=== PATIENT | male | born 1970 | race Hispanic/Latino ===

== ENCOUNTER 2017-02-13 22:56 | Inpatient (IN) | payer OTHER, SELFPAY ==
--- NOTE | 2017-02-13 23:55 | Cat Scan Report ---
FINAL REPORT EXAM: CT HEAD/BRAIN WO CON HISTORY: seizures TECHNIQUE: CT head without contrast PRIORS: None. FINDINGS: No acute intra-axial or extra-axial hemorrhage is identified. There is no evidence of midline shift or mass effect. The ventricles and sulci are within normal limits. Valverde-white matter differentiation is intact. No acute parenchymal abnormalities seen. Bony calvarium is grossly intact. There is complete opacification of the frontal sinus. Mucosal thickening is noted in the visualized portion of the left maxillary sinus. This opacification within left ethmoid air cells. IMPRESSION: Evidence for chronic sinusitis No acute intracranial findings
[2017-02-14 00:03] LABS: Basophils % (Auto) 1.1 % (0.0-1.8); Eosinophils % (Auto) 5.1 % (0.0-4.3); Hematocrit 50.7 % (35.5-45.6); Hemoglobin 16.9 gm/dl (11.8-15.2); Mean Corpuscular HGB Conc 33 % (32-34); Mean Corpuscular Hemoglobin 30 pg (28-32); Mean Corpuscular Volume 90 fl (84-94); Platelet Count 299 K/mm3 (140-440); Red Blood Count 5.64 M/mm3 (3.65-5.03); Red Cell Distribution Width 14.7 % (13.2-15.2); White Blood Count 10.4 K/mm3 (4.5-11.0)
[2017-02-14 00:17] LABS: BUN/Creatinine Ratio 17.77; Blood Urea Nitrogen 16 mg/dL (9-20); Carbon Dioxide 23 mmol/L (22-30); Chloride 101.8 mmol/L (98-107); Glucose 104 mg/dL (75-100); Potassium 4.3 mmol/L (3.6-5.0); Sodium 140 mmol/L (137-145)
[2017-02-14 00:22] LABS: Anion Gap 20 mmol/L
[2017-02-14] MEDS ORDERED: TYLENOL PO ONE (02:20)
[2017-02-14 02:40] LABS: Urine Drugs of Abuse Note Disclamer
[2017-02-14 02:48] LABS: Bilirubin,Urine NEG (Negative); Blood,Urine NEG (Negative); Ketones,Urine NEG (Negative); Leukocyte Esterase,Urine NEG (Negative); Nitrite,Urine NEG (Negative); Protein,Urine <15 mg/dL mg/dL (Negative); Urobilinogen,Urine < 2.0 mg/dL (<2.0)
[2017-02-14] MEDS ORDERED: REGLAN IV ONE (03:02)
[2017-02-14] MEDS ORDERED: TORADOL IV ONE (03:02)
[2017-02-14] MEDS ORDERED: BABY ASPIRIN PO ONE (03:03)
--- NOTE | 2017-02-14 03:03 | Emergency Department Report ---
ED General Adult HPI - General Chief complaint: Seizure Stated complaint: SEIZURE Time Seen by Provider: 02/14/17 02:48 Source: patient, family, EMS, RN notes reviewed Mode of arrival: Ambulatory Limitations: No Limitations - History of Present Illness Initial comments: This is a 46-year-old male. He is previously unknown to me. The patient does not have a primary care doctor. He is a chronic tobacco user. He is accompanied by his fiance. As per the patient's fiance, the patient got out of the shower yesterday evening, sat on the couch, and had an episode of unresponsiveness. She reports that the patient had general convulsive activity , and his eyes rolled into the back of his head. She further reports that the patient appeared to have some word finding difficulty which has since resolved. She reports that the patient's frequently stops breathing while asleep at night. The patient works in [employer]. He complains of mild frontal sinus headache. There is no chest pain. There is chronic shortness of breath. There is no leg pain. There is no leg swelling. No recent trips greater than 4 hours. No recent hospital admissions. No history of convulsive episodes in the past. No recent stress test. No history of sleep study. No recent echocardiogram. -: Gradual Location: head Severity scale (0 -10): 5 Consistency: now resolved Improves with: none Worsens with: none Associated Symptoms: confusion, diaphoresis, headaches, loss of appetite, malaise, shortness of breath, syncope (near syncope), weakness. denies: chest pain, cough - Related Data Home Medications Medication Instructions Recorded Confirmed Last Taken No Known Home Medications [No 02/13/17 02/13/17 Unknown Reported Home Medications] Allergies Allergy/AdvReac Type Severity Reaction Status Date / Time No Known Allergies Allergy Verified 02/13/17 23:21 ED Review of Systems ROS: Stated complaint: SEIZURE Other details as noted in HPI Constitutional: diaphoresis, malaise Eyes: vision change ENT: denies: epistaxis Respiratory: shortness of breath Cardiovascular: syncope. denies: chest pain Gastrointestinal: denies: abdominal pain Genitourinary: denies: dysuria Musculoskeletal: denies: back pain Skin: denies: lesions Neurological: headache, weakness, confusion ED Past Medical Hx - Past Medical History Hx Hypertension: No Hx Congestive Heart Failure: No Hx Diabetes: No Hx Asthma: No Hx COPD: No - Surgical History Past Surgical History?: No - Social History Smoking Status: Current Every Day Smoker Substance Use Type: None - Medications Home Medications: Home Medications Medication Instructions Recorded Confirmed Last Taken Type No Known Home Medications [No 02/13/17 02/13/17 Unknown History Reported Home Medications] ED Physical Exam - General Limitations: No Limitations General appearance: alert, in no apparent distress, obese - Head Head exam: Present: atraumatic, normocephalic - Eye Eye exam: Present: normal appearance, PERRL, EOMI. Absent: nystagmus - ENT ENT exam: Present: normal exam, normal orophraynx, mucous membranes moist, normal external ear exam - Neck Neck exam: Present: normal inspection, full ROM. Absent: tenderness, meningismus - Respiratory Respiratory exam: Present: normal lung sounds bilaterally. Absent: respiratory distress, wheezes, rales, rhonchi, stridor, chest wall tenderness, accessory muscle use, decreased breath sounds, prolonged expiratory - Cardiovascular Cardiovascular Exam: Present: regular rate, normal rhythm, normal heart sounds. Absent: systolic murmur, diastolic murmur, rubs, gallop - GI/Abdominal GI/Abdominal exam: Present: soft, normal bowel sounds. Absent: distended, tenderness, guarding, rebound, rigid, pulsatile mass - Rectal Rectal exam: Present: deferred - Extremities Exam Extremities exam: Present: normal inspection, full ROM, normal capillary refill. Absent: tenderness, pedal edema, joint swelling, calf tenderness - Back Exam Back exam: Present: normal inspection, full ROM. Absent: tenderness, CVA tenderness (R), CVA tenderness (L), muscle spasm, paraspinal tenderness, vertebral tenderness - Neurological Exam Neurological exam: Present: alert, oriented X3, normal gait, other (Extraocular movements intact. Tongue midline. No facial droop. Facial sensation intact to light touch in the V1, V2, V3 distribution bilaterally. 5 and 5 strength in 4 extremities.. Sensation is intact to light touch in 4 extremities.). Absent : motor sensory deficit - Psychiatric Psychiatric exam: Present: anxious - Skin Skin exam: Present: warm, dry, intact, normal color. Absent: rash ED Course Vital Signs 02/13/17 02/14/17 02/14/17 23:26 02:11 03:31 Temperature 98 F Pulse Rate 74 60 Respiratory 16 16 18 Rate Blood Pressure 125/76 Blood Pressure 125/79 [Left] O2 Sat by Pulse 95 95 Oximetry 02/14/17 02/14/17 03:36 04:34 Temperature 98.8 F Pulse Rate 66 Respiratory 18 16 Rate Blood Pressure Blood Pressure 122/74 [Left] O2 Sat by Pulse 97 Oximetry ED Medical Decision Making - Lab Data Result diagrams: 02/13/17 23:48 02/14/17 00:05 Vital Signs 02/13/17 02/14/17 02/14/17 23:26 02:11 03:31 Temperature 98 F Pulse Rate 74 60 Respiratory 16 16 18 Rate Blood Pressure 125/76 Blood Pressure 125/79 [Left] O2 Sat by Pulse 95 95 Oximetry 02/14/17 02/14/17 03:36 04:34 Temperature 98.8 F Pulse Rate 66 Respiratory 18 16 Rate Blood Pressure Blood Pressure 122/74 [Left] O2 Sat by Pulse 97 Oximetry Lab Results 02/13/17 02/13/17 02/14/17 Range/Units 23:48 23:51 00:05 WBC 10.4 (4.5-11.0) K/mm3 RBC 5.64 H (3.65-5.03) M/mm3 Hgb 16.9 H (11.8-15.2) gm/dl Hct 50.7 H (35.5-45.6) % MCV 90 (84-94) fl MCH 30 (28-32) pg MCHC 33 (32-34) % RDW 14.7 (13.2-15.2) % Plt Count 299 (140-440) K/mm3 Lymph % (Auto) 23.8 (13.4-35.0) % [place] % (Auto) 7.9 H (0.0-7.3) % Eos % (Auto) 5.1 H (0.0-4.3) % Baso % (Auto) 1.1 (0.0-1.8) % Lymph # 2.5 (1.2-5.4) K/mm3 [place] # 0.8 (0.0-0.8) K/mm3 Eos # 0.5 H (0.0-0.4) K/mm3 Baso # 0.1 (0.0-0.1) K/mm3 Seg Neutrophils % 62.1 (40.0-70.0) % Seg Neutrophils # 6.4 (1.8-7.7) K/mm3 Sodium 140 (137-145) mmol/L Potassium 4.3 (3.6-5.0) mmol/L Chloride 101.8 (98-107) mmol/L Carbon Dioxide 23 (22-30) mmol/L Anion Gap 20 mmol/L BUN 16 (9-20) mg/dL Creatinine 0.9 (0.8-1.5) mg/dL Estimated GFR > 60 ml/min BUN/Creatinine Ratio 17.77 % Glucose 104 H (75-100) mg/dL POC Glucose 101 (70-105) Calcium 9.0 (8.4-10.2) mg/dL Total Creatine Kinase (55-170) units/L Troponin T (0.00-0.029) ng/mL Urine Color (Yellow) Urine Turbidity (Clear) Urine pH (5.0-7.0) Ur Specific [place] (1.003-1.030) Urine Protein (Negative) mg/dL Urine Glucose (UA) (Negative) mg/dL Urine Ketones (Negative) mg/dL Urine Blood (Negative) Urine Nitrite (Negative) Urine Bilirubin (Negative) Urine Urobilinogen (<2.0) mg/dL Ur Leukocyte Esterase (Negative) Urine WBC (Auto) (0.0-6.0) /HPF Urine RBC (Auto) (0.0-6.0) /HPF U Epithel Cells (Auto) (0-13.0) /HPF Salicylates (2.8-20.0) mg/dL Urine Opiates Screen Urine Methadone Screen Acetaminophen (10.0-30.0) ug/mL Ur Barbiturates Screen Ur Phencyclidine Scrn Ur Amphetamines Screen U Benzodiazepines Scrn Urine Cocaine Screen U Marijuana (THC) Screen Drugs of Abuse Note Plasma/Serum Alcohol (0-0.07) gm% 02/14/17 02/14/17 02/14/17 Range/Units 00:10 00:10 00:10 WBC (4.5-11.0) K/mm3 RBC (3.65-5.03) M/mm3 Hgb (11.8-15.2) gm/dl Hct (35.5-45.6) % MCV (84-94) fl MCH (28-32) pg MCHC (32-34) % RDW (13.2-15.2) % Plt Count (140-440) K/mm3 Lymph % (Auto) (13.4-35.0) % [place] % (Auto) (0.0-7.3) % Eos % (Auto) (0.0-4.3) % Baso % (Auto) (0.0-1.8) % Lymph # (1.2-5.4) K/mm3 [place] # (0.0-0.8) K/mm3 Eos # (0.0-0.4) K/mm3 Baso # (0.0-0.1) K/mm3 Seg Neutrophils % (40.0-70.0) % Seg Neutrophils # (1.8-7.7) K/mm3 Sodium (137-145) mmol/L Potassium (3.6-5.0) mmol/L Chloride (98-107) mmol/L Carbon Dioxide (22-30) mmol/L Anion Gap mmol/L BUN (9-20) mg/dL Creatinine (0.8-1.5) mg/dL Estimated GFR ml/min BUN/Creatinine Ratio % Glucose (75-100) mg/dL POC Glucose (70-105) Calcium (8.4-10.2) mg/dL Total Creatine Kinase 62 (55-170) units/L Troponin T (0.00-0.029) ng/mL Urine Color (Yellow) Urine Turbidity (Clear) Urine pH (5.0-7.0) Ur Specific [place] (1.003-1.030) Urine Protein (Negative) mg/dL Urine Glucose (UA) (Negative) mg/dL Urine Ketones (Negative) mg/dL Urine Blood (Negative) Urine Nitrite (Negative) Urine Bilirubin (Negative) Urine Urobilinogen (<2.0) mg/dL Ur Leukocyte Esterase (Negative) Urine WBC (Auto) (0.0-6.0) /HPF Urine RBC (Auto) (0.0-6.0) /HPF U Epithel Cells (Auto) (0-13.0) /HPF Salicylates < 0.3 L (2.8-20.0) mg/dL Urine Opiates Screen Urine Methadone Screen Acetaminophen (10.0-30.0) ug/mL Ur Barbiturates Screen Ur Phencyclidine Scrn Ur Amphetamines Screen U Benzodiazepines Scrn Urine Cocaine Screen U Marijuana (THC) Screen Drugs of Abuse Note Plasma/Serum Alcohol < 0.01 (0-0.07) gm% 02/14/17 02/14/17 02/14/17 Range/Units 00:10 02:36 02:36 WBC (4.5-11.0) K/mm3 RBC (3.65-5.03) M/mm3 Hgb (11.8-15.2) gm/dl Hct (35.5-45.6) % MCV (84-94) fl MCH (28-32) pg MCHC (32-34) % RDW (13.2-15.2) % Plt Count (140-440) K/mm3 Lymph % (Auto) (13.4-35.0) % [place] % (Auto) (0.0-7.3) % Eos % (Auto) (0.0-4.3) % Baso % (Auto) (0.0-1.8) % Lymph # (1.2-5.4) K/mm3 [place] # (0.0-0.8) K/mm3 Eos # (0.0-0.4) K/mm3 Baso # (0.0-0.1) K/mm3 Seg Neutrophils % (40.0-70.0) % Seg Neutrophils # (1.8-7.7) K/mm3 Sodium (137-145) mmol/L Potassium (3.6-5.0) mmol/L Chloride (98-107) mmol/L Carbon Dioxide (22-30) mmol/L Anion Gap mmol/L BUN (9-20) mg/dL Creatinine (0.8-1.5) mg/dL Estimated GFR ml/min BUN/Creatinine Ratio % Glucose (75-100) mg/dL POC Glucose (70-105) Calcium (8.4-10.2) mg/dL Total Creatine Kinase (55-170) units/L Troponin T (0.00-0.029) ng/mL Urine Color Yellow (Yellow) Urine Turbidity Clear (Clear) Urine pH 7.0 (5.0-7.0) Ur Specific [place] 1.017 (1.003-1.030) Urine Protein <15 mg/dl (Negative) mg/dL Urine Glucose (UA) Neg (Negative) mg/dL Urine Ketones Neg (Negative) mg/dL Urine Blood Neg (Negative) Urine Nitrite Neg (Negative) Urine Bilirubin Neg (Negative) Urine Urobilinogen < 2.0 (<2.0) mg/dL Ur Leukocyte Esterase Neg (Negative) Urine WBC (Auto) 2.0 (0.0-6.0) /HPF Urine RBC (Auto) 3.0 (0.0-6.0) /HPF U Epithel Cells (Auto) < 1.0 (0-13.0) /HPF Salicylates (2.8-20.0) mg/dL Urine Opiates Screen Presumptive negative Urine Methadone Screen Presumptive negative Acetaminophen < 15.0 (10.0-30.0) ug/mL Ur Barbiturates Screen Presumptive negative Ur Phencyclidine Scrn Presumptive negative Ur Amphetamines Screen Presumptive negative U Benzodiazepines Scrn Presumptive negative Urine Cocaine Screen Presumptive negative U Marijuana (THC) Screen Presumptive negative Drugs of Abuse Note Disclamer Plasma/Serum Alcohol (0-0.07) gm% 02/14/17 Range/Units 03:53 WBC (4.5-11.0) K/mm3 RBC (3.65-5.03) M/mm3 Hgb (11.8-15.2) gm/dl Hct (35.5-45.6) % MCV (84-94) fl MCH (28-32) pg MCHC (32-34) % RDW (13.2-15.2) % Plt Count (140-440) K/mm3 Lymph % (Auto) (13.4-35.0) % [place] % (Auto) (0.0-7.3) % Eos % (Auto) (0.0-4.3) % Baso % (Auto) (0.0-1.8) % Lymph # (1.2-5.4) K/mm3 [place] # (0.0-0.8) K/mm3 Eos # (0.0-0.4) K/mm3 Baso # (0.0-0.1) K/mm3 Seg Neutrophils % (40.0-70.0) % Seg Neutrophils # (1.8-7.7) K/mm3 Sodium (137-145) mmol/L Potassium (3.6-5.0) mmol/L Chloride (98-107) mmol/L Carbon Dioxide (22-30) mmol/L Anion Gap mmol/L BUN (9-20) mg/dL Creatinine (0.8-1.5) mg/dL Estimated GFR ml/min BUN/Creatinine Ratio % Glucose (75-100) mg/dL POC Glucose (70-105) Calcium (8.4-10.2) mg/dL Total Creatine Kinase (55-170) units/L Troponin T < 0.010 (0.00-0.029) ng/mL Urine Color (Yellow) Urine Turbidity (Clear) Urine pH (5.0-7.0) Ur Specific [place] (1.003-1.030) Urine Protein (Negative) mg/dL Urine Glucose (UA) (Negative) mg/dL Urine Ketones (Negative) mg/dL Urine Blood (Negative) Urine Nitrite (Negative) Urine Bilirubin (Negative) Urine Urobilinogen (<2.0) mg/dL Ur Leukocyte Esterase (Negative) Urine WBC (Auto) (0.0-6.0) /HPF Urine RBC (Auto) (0.0-6.0) /HPF U Epithel Cells (Auto) (0-13.0) /HPF Salicylates (2.8-20.0) mg/dL Urine Opiates Screen Urine Methadone Screen Acetaminophen (10.0-30.0) ug/mL Ur Barbiturates Screen Ur Phencyclidine Scrn Ur Amphetamines Screen U Benzodiazepines Scrn Urine Cocaine Screen U Marijuana (THC) Screen Drugs of Abuse Note Plasma/Serum Alcohol (0-0.07) gm% - EKG Data 02/14/17 04:53 Normal sinus, 67 bpm, QTC 452 ms, Q waves in the inferior leads. Not morphologically consistent with STEMI. There is no prior for comparison. - Radiology Data Radiology results: report reviewed, image reviewed Noncontrast CT scan of the brain negative for acute disease. Chronic sinusitis is suggested. - Medical Decision Making Differential diagnosis: Obstructive sleep apnea, pulmonary hypertension, congestive heart failure, pneumonia, urinary tract infection, seizure, syncope, structural cardiac disease, acute coronary syndrome, transient ischemic attack Assessment and plan: 46-year-old male with resolved convulsive activity, had a history of word finding difficulty, and diaphoresis. He is quite obese, and his fiance does endorse that the patient snores quite a bit at night, and has episodes of apnea while sleeping. Most likely, the patient had an episode of either hypoxemic or hypercarbic encephalopathy, most likely secondary to multifactorial etiology, including probable pulmonary hypertension, obstructive sleep apnea, obesity hypoventilation syndrome. Patient also endorses nonspecific near syncopal symptoms, currently has a GCS of 15, with an NIH score of 0, walks with a steady gait, is clinically sober. He has no pulmonary embolus or DVT risk factors, is low risk by well's criteria, and is perc negative. Given concern for seizure versus syncope with shortness of breath, lack of outpatient follow-up, patient will be admitted for further evaluation and management. Case is presented to the Hospital physician, Dr. Rutledge, who accepts the patient to her service. Critical care attestation.: If time is entered above; I have spent that time in minutes in the direct care of this critically ill patient, excluding procedure time. ED Disposition Clinical Impression: Syncope, History of aphasia, Convulsion Disposition: 09 OP ADMIT IP TO THIS HOSP Is pt being admited?: Yes Does the pt Need Aspirin: Yes Condition: Stable
[2017-02-14] MEDS ORDERED: DULCOLAX PR PRN (03:58)
[2017-02-14] MEDS ORDERED: TYLENOL PO PRN (03:58)
[2017-02-14] MEDS ORDERED: MILK OF MAGNESIA PO PRN (03:58)
[2017-02-14] MEDS ORDERED: ZOFRAN IV PRN (03:58)
--- NOTE | 2017-02-14 04:24 | History and Physical Report ---
History of Present Illness Date of examination: 02/14/17 History of present illness: 46-year-old man with obesity comes to the emergency room because while he was lying down on the couch, peripheral bedside state that his eyes rolled back and he became unresponsive for 1 minute with seizure-like activity. The patient was confused after the incident Review Of Systems: Constitutional: no fever, chills, weight loss Ears, eyes, nose, mouth and throat: no nasal congestion, no nasal discharge, no sinus pressure, blurry vision, diplopia Neck: No neck pain or rigidity. Cardiovascular: chest pain, orthopnea, palpitations Respiratory: No shortness of breath, cough Gastrointestinal: abdominal pain, hematochezia Genitourinary : no dysuria, frequency , hematuria Musculoskeletal: no joint swelling or muscle ache Integumentary: no rash, no pruritis Neurological: no parathesias, focal weakness Endocrine: no cold or heat intolerance, no polyuria or polydipsia Hematologic/Lymphatic: no easy bruising, no easy bleeding, no gland swelling Allergic/Immunologic: no urticaria, no angioedema. PAST MEDICAL HISTORY: None PAST SURGICAL HISTORY: Appendectomy FAMILY HISTORY: Hypertension SOCIAL HISTORY: Smoked one pack a day, no alcohol or drugs Medications and Allergies Allergies Allergy/AdvReac Type Severity Reaction Status Date / Time No Known Allergies Allergy Verified 02/13/17 23:21 Home Medications Medication Instructions Recorded Confirmed Last Taken Type No Known Home Medications [No 02/13/17 02/13/17 Unknown History Reported Home Medications] Active Meds: Active Medications Acetaminophen (Tylenol) 650 mg PO Q4H PRN PRN Reason: Pain MILD(1-3)/Fever >100.5/PEDERSEN Bisacodyl (Dulcolax) 10 mg [place] QDAY PRN PRN Reason: Constipation unrelieved by MOM Enoxaparin Sodium (Lovenox) 40 mg SUB-Q QDAY HARITHA Magnesium Hydroxide (Milk Of Magnesia) 30 ml PO Q4H PRN PRN Reason: Constipation Ondansetron HCl (Zofran) 4 mg IV Q8H PRN PRN Reason: N/V unrelieved by Reglan Exam - Physical Exam Narrative exam: Gen. appearance: Patient lying in bed, no apparent distress HEENT: Normocephalic, atraumatic, pupils equally round and reactive to light, extraocular movement intact, and no sclericterus,. No JVD or thyromegaly or nodule,neck supple, no carotid bruit ,mucous membranes moist, no exudate or erythema Heart: S1, S2, regular rate and rhythm Lungs: Clear to auscultation bilaterally, breathing comfortable Abdomen: Positive bowel sounds, nontender, nondistended, no organomegaly Extremity: No edema, cyanosis, clubbing Skin: No rash, nodules, warm, dry Neuro: Oriented 3, cranial nerves II-12 intact, speech is fluent, motor and sensory intact - Constitutional Vitals: Temp Pulse Resp BP Pulse Ox 98 F 60 18 125/79 95 02/13/17 23:26 02/14/17 02:11 02/14/17 03:36 02/14/17 02:11 02/14/17 02:11 Results - Labs CBC & Chem 7: 02/13/17 23:48 02/14/17 00:05 Labs: Abnormal lab results 02/13/17 02/14/17 02/14/17 Range/Units 23:48 00:05 00:10 RBC 5.64 H (3.65-5.03) M/mm3 Hgb 16.9 H (11.8-15.2) gm/dl Hct 50.7 H (35.5-45.6) % [place] % (Auto) 7.9 H (0.0-7.3) % Eos % (Auto) 5.1 H (0.0-4.3) % Eos # 0.5 H (0.0-0.4) K/mm3 Glucose 104 H (75-100) mg/dL Salicylates < 0.3 L (2.8-20.0) mg/dL - Imaging and Cardiology CT Scan - head: report reviewed Assessment and Plan Assessment New onset seizure activity Morbid obesity Secondary polycythemia vera Plan Admit to medicine Start IV Ativan as needed for seizure activity Consult neurology, obtain EEG Start DVT prophylaxis
[2017-02-14] MEDS ORDERED: ATIVAN IV PRN (04:44)
--- NOTE | 2017-02-14 05:42 | XRay Report ---
FINAL REPORT PROCEDURE: XR CHEST 1V AP TECHNIQUE: Chest radiograph anteroposterior view. CPT 19313 HISTORY: dyspnea COMPARISON: No prior studies are available for comparison. FINDINGS: Heart: Normal. Mediastinum/Vessels: Normal. Lungs/Pleural space: There is suboptimal inspiration. There are no active infiltrates. There are no effusions or pneumothoraces. Bony thorax: No acute osseous abnormality. Life support devices: None. IMPRESSION: No acute cardiopulmonary abnormality.
--- NOTE | 2017-02-14 08:47 | Admit Criteria Form ---
Admission Criteria Documentation: SYNCOPE Clinical Indications for Admission to Inpatient Care ( Place 'X' for any and all applicable criteria): Admission is indicated for syncope and ANY ONE of the following (1)(2)(3)(4)(5) (6)(7) : [X]I. Inpatient admission required rather than observation care (Also use Syncope: Observation Care Criteria as appropriate) because of ANY ONE of the following: [ ]a) Hemodynamic instability that is severe or persistent [ ]b) Cardiac arrhythmias of immediate concern identified or strongly suspected (eg, needs electrophysiologic study) [ ]c) Acute coronary syndrome identified (Also use Myocardial Infarction or Angina Criteria form ) [ ]d) Structural cardiac disorder (eg, aortic stenosis) suspected as cause that requires immediate correction [ ]e) Respiratory symptoms (eg, dyspnea, tachypnea) that are severe or persistent [ ]f) Neurologic signs or symptoms that are severe or persistent ( eg, stroke, seizures, altered mental status) [ ]g) Severe electrolyte abnormalities requiring inpatient care [ ]h) Supplemental oxygen or respiratory treatment for over 24 hrs that are performable only in acute inpatient setting [ ]i) IV fluid to replace significant ongoing (eg, for over 24 hrs ) losses (>3 L/m2 per day) [ ]j) Continuous intravenous infusion of anticoagulation, platelet inhibitor, vasoactive, or antiarrhythmic medication(15)(16) [ ]k) Pulmonary artery catheter monitoring [ ]l) Temporary pacemaker placement(17) [ ]m) Emergent cardioversion(18) [X]n) Other conditions, treatment or monitoring requiring inpatient admission [ ]II. Suspicion of imminently dangerous cause (eg, rare causes like pericardial tamponade, pulmonary embolism) [ ]III. Syncope causing severe injury requiring hospitalization Extended stay beyond goal length of stay may be needed for(28) [ ]a) Dangerous arrhythmia(15)(23)(27)(29) [ ]b) Myocardial ischemia [ ]c) Seizure disorder [ ]d) Syncope-related injuries The original [employer] content created by [employer] has been revised. The portions of the content which have been revised are identified through the use of italic text or in bold, and [employer] has neither reviewed nor approved the modified material. All other unmodified content is copyright [employer] [employer]. Please see references footnoted in the original [facility] edition 2016 Admission Criteria Met: Yes
[2017-02-14] MEDS ORDERED: LOVENOX SUB-Q SCH (10:00)
[2017-02-14 12:42] VITALS: BP 110/58
--- NOTE | 2017-02-14 12:51 | Consultation ---
History of Present Illness - Reason for Consult Consult date: 02/14/17 seizure - History of Present Illness full note is dictated and at this point he has negative CT of head and all labs are OK he can go home on keppra 750 mg at hs once daily likely the old hx of head trauma causation factor Medications and Allergies Allergies Allergy/AdvReac Type Severity Reaction Status Date / Time No Known Allergies Allergy Verified 02/13/17 23:21 Home Medications Medication Instructions Recorded Confirmed Last Taken Type No Known Home Medications [No 02/13/17 02/13/17 Unknown History Reported Home Medications] Active Meds: Active Medications Acetaminophen (Tylenol) 650 mg PO Q4H PRN PRN Reason: Pain MILD(1-3)/Fever >100.5/PEDERSEN Bisacodyl (Dulcolax) 10 mg [place] QDAY PRN PRN Reason: Constipation unrelieved by MOM Enoxaparin Sodium (Lovenox) 40 mg SUB-Q QDAY HARITHA Lorazepam (Ativan) 1 mg IV Q4H PRN PRN Reason: Seizures Magnesium Hydroxide (Milk Of Magnesia) 30 ml PO Q4H PRN PRN Reason: Constipation Ondansetron HCl (Zofran) 4 mg IV Q8H PRN PRN Reason: N/V unrelieved by Reglan Exam - Constitutional Vitals: Temp Pulse Resp BP Pulse Ox 97.7 F 62 18 110/58 96 02/14/17 11:05 02/14/17 11:05 02/14/17 11:05 02/14/17 11:05 02/14/17 11:05 Results - Labs CBC & Chem 7: 02/13/17 23:48 02/14/17 00:05
--- NOTE | 2017-02-14 13:21 | Event Note ---
DISCHARGE NOTE 46-year-old man who presented with new onset seizure. He had a CT of his head which was negative. He was seen by neurology while in hospital. He was started on Keppra 750 mg at bedtime. And he is being discharged on this medication. Of note he was seizure free while in hospital. Diagnoses Status epilepticus Morbid obesity
--- NOTE | 2017-02-15 08:26 | Consultation ---
HISTORY OF PRESENT ILLNESS: The patient has a new-onset seizure. He presents at the [facility], 46-year-old white male witnessed seizure. He was seen through the ED was evaluated initially, had a CT scan of the head, which was obtained and does not show any abnormalities, except for chronic sinusitis. The patient's presenting history is he has had a number of concussions in his life by his history. Review of his labs show he has a ____ cell count of 5100, which is compatible with his history of allergic sinusitis. His glucose is 104, his urinary screen is negative. He does have a negative drug screen. He denies drinking alcohol. There is nothing in the history to indicate why he is having the seizures, except that he did miss his sleep. PHYSICAL EXAMINATION: GENERAL: Examination reveals him to be completely alert, appropriate. NECK: Supple. Speech clear. VITAL SIGNS: Shows blood pressure to be 124/76, respirations 18, pulse rate is 80. NEUROLOGIC: Cranial nerves II through XII are intact. Motor and sensory examination unremarkable. IMPRESSION: This patient has new-onset of seizures. Recommend Keppra 750 mg once at bedtime to sleep. His workup so far is negative. Interestingly, this was a witnessed seizure, it was prolonged. He has had concussions and head injuries in the past. This may be the best estimate as to what the etiology is contributed from. JOB# [id number] PETER/WOLF
== END 2017-02-14 15:40 | disposition home or self-care (01) | DRG 101 ==
LOC: ED 22:56 → 3A 02-14 03:58
PROVIDERS: ADMIT Internal Medicine; ATTEND Internal Medicine
DX: R56.9 Unspecified convulsions (principal); Z68.42 Body mass index [BMI] 45.0-49.9, adult; F17.210 Nicotine dependence, cigarettes, uncomplicated; E66.01 Morbid (severe) obesity due to excess calories; D45 Polycythemia vera; Z90.49 Acquired absence of other specified parts of digestive tract; Z82.49 Family history of ischemic heart disease and other diseases of the circulatory system
CPT/HCPCS: 36415; 70450; 71010; 80048; 80307; 80320; 81001; 82550; 82962; 84484; 85025; 93005; 93010; 95819; 96374; 96375; 99285; G0480; J1650; J1885; J2765